=== PATIENT | female | born 1950 | race Caucasian/White ===

== ENCOUNTER → 2018-03-16 | Outpatient (CLI) | payer MEDICARE, BC ==
--- NOTE | 2018-03-09 15:04 | MH ---
cc: Carrington Brown MD DATE OF ADMISSION: 03/16/2018 ADMISSION DIAGNOSIS: Chronic open angle glaucoma - severe, left eye. HISTORY OF PRESENT ILLNESS: This 67-year-old white female is coming through [facility] for the purpose of an argon laser trabeculoplasty of the inferior half of the angle of the left eye. 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 PAST MEDICAL HISTORY: The patient has a history of osteoarthritis, neuropathy, hypertension, asthma and cholesterol problems. PAST SURGICAL HISTORY: Includes tonsillectomy, appendectomy, tubal ligation, and hysterectomy. DAILY MEDICATIONS: Include: 1. Gabapentin. 2. Cymbalta. 3. Carvedilol. 4. Baby aspirin. 5. Advil. 6. AREDS 2 vitamins. 7. Breo Ellipta inhaler. 8. Gaviscon 9. atorvastatin,. 10. Travatan Z eyedrops at bedtime. 11. Simbrinza eye drops twice a day in the left eye. ALLERGIES: SHE IS ALLERGIC TO PENICILLIN, SULFA, AND KEFLEX. FAMILY HISTORY: Positive for parents with cataracts. Father with glaucoma. Mother, grandmother both with macular degeneration. REVIEW OF SYSTEMS: Noncontributory. OCULAR EXAMINATION: The patient's best corrected visual acuity was 20/25 -3 in the right eye and 20/30 -2 in the left. Visual shields are full to confrontation testing. There are field defects noted, especially in the left eye on automated perimetry consistent with severe glaucoma. Extraocular muscle exam reveals full versions with orthophoric at distance and near. Pupils are 3.5 mm, equal, round, reactive to light, without afferent defect. Anterior segment examination reveals bilateral cataracts, left greater than right, with pseudoexfoliation of the lens capsule in the left eye. The patient also has some cells and flare trace in the left. Intraocular pressure is 15 in the right eye and 31 in the left by applanation tonometry. Dilated fundus exam revealed sharp disc with cup-to-disc ratio 0.2 in the right eye and 0.45 in the left. 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 An epiretinal membrane was present in the macula of the left eye and retinal pigment epithelial changes are also present in the macula of the left eye. A posterior vitreous detachment is present bilaterally. IMPRESSION: 1. Chronic open angle glaucoma, severe left eye. 2. Pseudoexfoliation of the left eye. 3. Epiretinal membrane, left eye. 4. Mild dry early macular degeneration, both eyes. 5. Posterior vitreous detachment both eyes. PLAN: Argon laser trabeculoplasty inferior angle of the left eye through [facility]. MD SHAR Randle/SB , 02:36 PM , 03:04 PM
[~2018-03-16] MED LIST: BALANCED SALT SOLN OPHT IRRIG 15 ML BTL ONE; FLUOROMETHOLONE 0.25% OPHT SUSP 5 ML BTL ONE; PROPARACAINE HCL 0.5% OPHT SOLN 15 ML BTL ONE
--- NOTE | 2018-03-16 13:19 | MP ---
cc: Carrington Brown MD DATE OF OPERATION: 03/16/2018 POSTOPERATIVE DIAGNOSIS: Chronic open angle glaucoma, left eye. OPERATION: Argon laser trabeculoplasty, left eye, inferior angle. ANESTHESIA: Topical. COMPLICATIONS: None. INDICATIONS: See history and physical previously dictated. PROCEDURE: The patient arrived at [facility]. Blood pressure was 141/77, pulse 73, respirations 20. A drop of Alphagan P was instilled in the left eye and the patient was seated at the Argon laser. A drop of Ophthaine was instilled in the left eye and a single mirror Gonio lens was placed on the anterior surface of the left cornea. Argon laser trabeculoplasty was then carried out. Fifty exposures were placed at the junction of the pigmented and nonpigmented trabecular meshwork. The exposure time was 0.1 second, spot size was 50 microns, power was 1,000 milliwatts. The patient tolerated the procedure well. A drop of Alphagan P was instilled in the eye. The patient was given a prescription for topical steroids to be used q.i.d. in the left eye postoperatively, and has an appointment for follow up on the first postoperative day in my office. The patient was given written postoperative instructions. The patient left the [facility] in satisfactory condition. MD SHAR Randle/SB , 12:42 PM , 01:19 PM
== END ==
LOC: PHSDC 11:29
PROVIDERS: ATTEND Ophthalmology
DX: H40.1423 Capsular glaucoma with pseudoexfoliation of lens, left eye, severe stage (principal); H35.3131 Nonexudative age-related macular degeneration, bilateral, early dry stage; H43.813 Vitreous degeneration, bilateral; I10 Essential (primary) hypertension; J45.909 Unspecified asthma, uncomplicated; M19.90 Unspecified osteoarthritis, unspecified site; G62.9 Polyneuropathy, unspecified